=== PATIENT | female | born 1945 | race Caucasian/White ===

== ENCOUNTER → 2020-11-20 | Outpatient (CLI) | payer MEDICARE ==
[~2020-11-20] MED LIST: OMNIPAQUE 350 MG/ML, 100ML BOTTLE ONE
== END | disposition home or self-care (01) ==
LOC: CFH 13:11
PROVIDERS: ATTEND Internal Medicine
DX: Z12.2 Encounter for screening for malignant neoplasm of respiratory organs (principal); J43.9 Emphysema, unspecified; R91.8 Other nonspecific abnormal finding of lung field; F17.211 Nicotine dependence, cigarettes, in remission; Z90.2 Acquired absence of lung [part of]; Z85.118 Personal history of other malignant neoplasm of bronchus and lung
CPT/HCPCS: 71271; Q9967

== ENCOUNTER → 2020-12-15 | Outpatient (CLI) | payer MEDICARE | END | disposition home or self-care (01) | LOC: PETCFH 12:39 | PROVIDERS: ATTEND Internal Medicine | DX: C34.90 Malignant neoplasm of unspecified part of unspecified bronchus or lung (principal); R91.8 Other nonspecific abnormal finding of lung field | CPT/HCPCS: 78816; A9552 ==

== ENCOUNTER 2021-01-21 07:45 | Day surgery (SDC) | payer MEDICARE ==
[~2021-01-21] VITALS: Ht 157.5 cm; Wt 69.1 kg
[2021-01-21 08:29] VITALS: BP 112/69
[2021-01-21] MEDS ORDERED: SODIUM CHLORIDE 0.9% 1,000 ML IV SCH ×2 (09:00→10:50)
[2021-01-21] MEDS ORDERED: FENTANYL PF 100 MCG/2ML ONE (09:13)
[2021-01-21] MEDS ORDERED: MIDAZOLAM 1 MG/ML, 5ML ONE ×2 (09:13)
[2021-01-21] MEDS ORDERED: FLUMAZENIL 0.1 MG/1 ML, 5ML ONE (09:14)
[2021-01-21] MEDS ORDERED: NALOXONE 1 MG/ML, 2ML ONE (09:14)
== END 2021-01-21 12:00 | disposition home or self-care (01) ==
LOC: OUT 07:45 → EDSTATUS 09:30 → OUT 12:00
PROVIDERS: ATTEND Internal Medicine
DX: C34.90 Malignant neoplasm of unspecified part of unspecified bronchus or lung (principal); J44.9 Chronic obstructive pulmonary disease, unspecified; J96.10 Chronic respiratory failure, unspecified whether with hypoxia or hypercapnia; I10 Essential (primary) hypertension; I25.2 Old myocardial infarction; Z79.899 Other long term (current) drug therapy; Z88.5 Allergy status to narcotic agent; Z88.8 Allergy status to other drugs, medicaments and biological substances; Z91.030 Bee allergy status; Z91.041 Radiographic dye allergy status; Z95.5 Presence of coronary angioplasty implant and graft
CPT/HCPCS: 32408; 71045; 88305; 99156; J2250; J3010; J7030; 77012; J2310